=== PATIENT | female | born 2000 | race Caucasian/White ===

== ENCOUNTER → 2018-06-24 08:31 | Observation (INO) ==
[2018-06-24 07:42] LABS: Bilirubin,Urine Negative (Negative); Blood,Urine Negative (Negative); Color,Urine Yellow (Yellow); Glucose,Urine (UA) Normal (Normal); Ketones,Urine Negative (Negative); Leukocyte Esterase,Urine Moderate (Negative); Nitrite,Urine Negative (Negative); Protein,Urine Negative (Neg-Trace); Specific Gravity,Urine 1.008 (1.010-1.025); Urobilinogen,Urine Normal (Normal)
[2018-06-24 07:45] LABS: Bacteria,Urine Many per hpf (None-Few); Clarity,Urine Cloudy (Clear); Hyaline Casts,Urine Few per lpf (None-Few); RBC,Urine 0-3 per hpf (0-3); Squamous Epithelial Cell,Urine Many per lpf (None-Few); WBC,Urine TNTC per hpf (0-3)
--- NOTE | 2018-06-24 08:04 | OB/GYN Progress Note ---
Date of Encounter: 06/24/18 Time of Encounter: 08:00 - Assessment and Plan (1) First in adolescent 16 years of age or older in second trimester Current Visit: Yes Status: Acute (2) 27 weeks gestation of Current Visit: Yes Status: Acute (3) uterine contractions in second trimester, antepartum Current Visit: Yes Status: Acute (4) Bacterial vaginosis Current Visit: Yes Status: Acute We will get patient Flagyl 500 mg by mouth 1 now we will observe patient then will discharge home if stable with a prescription for Flagyl 500 mg twice a day for a week patient will follow-up in the office this week Subjective - Subjective Interval history: Patient is a 18-year-old 1 para 0 at 27-6/7 weeks who presents to labor and delivery complaining of intense lower abdominal pressure discharge and possible bleeding. Patient states she woke up at approximately 3 AM with abdominal discomfort she went to the bathroom when she wiped she stated she note d a darkish possible bloody discharge on the toilet paper. The patient states she went back to bed workup at approximately 6:00 with cramping and pressure she called her family members the advised to come to the hospital. Patient states she has had no blood that she can describe upon arrival and that discharge that she is describing is a darkish discoloration not bright red blood. She states she has been having a mucousy white discharge some time has not been addressed. Patient is not complaining of any dysuria urgency frequency no vaginal itching or burning. She states she is still feeling baby move well. Antepartum ROS: contractions Objective - Exam FHR: category 1 FHR comments: heart tones 140s reactive occasional contractions seen. Auscultation: bilateral: normal Abdomen: Present: normal appearance, soft, gravid Uterus: Present: firm Cervical dilation: 0 Cervix effacement: thick station: not engaged Comments: Sterile speculum exam performed on the patient's did reveal a copious white discharge with no blood inside the vaginal vault cervical os was closed with now performed on the patient did reveal clue cells suggestive of bacterial vaginosis. - Labs Labs: Abnormal lab results Urine Clarity Cloudy (Clear) A 06/24/18 07:30 Ur Specific [place] 1.008 (1.010-1.025) L 06/24/18 07:30 Ur Leukocyte Esterase Moderate (Negative) H 06/24/18 07:30 Urine Microscopic WBC TNTC per hpf (0-3) H 06/24/18 07:30 Ur Squamous Epith Cells Many per lpf (None-Few) H 06/24/18 07:30 Urine Bacteria Many per hpf (None-Few) H 06/24/18 07:30 Ur Culture Indicated? NO. (NO) A 06/24/18 07:30
[2018-06-24 08:05] LABS: Amphetamine Screen,Urine Negative ng/mL (Cutoff=1000); Barbiturate Screen,Urine Negative ng/mL (Cutoff=200); Benzodiazepines Screen,Urine Negative ng/mL (Cutoff=200); Cannabinoid Screen,Urine Positive ng/mL (Cutoff = 50); Cocaine Screen,Urine Negative ng/mL (Cutoff= 300); Opiate Screen,Urine Negative ng/mL (Cutoff=300); Phencyclidine Screen,Urine Negative ng/mL (Cutoff=25)
[~2018-06-24 08:31] MED LIST: metroNIDAZOLE 500 MG TABLET PO ONE
== END | disposition home or self-care (01) ==
LOC: 1NENULAB
PROVIDERS: ADMIT Registered Nurse; ATTEND Registered Nurse

== ENCOUNTER → 2018-09-09 12:26 | Observation (INO) ==
[2018-09-09 11:26] LABS: Amphetamine Screen,Urine Negative ng/mL (Cutoff=1000); Barbiturate Screen,Urine Negative ng/mL (Cutoff=200); Benzodiazepines Screen,Urine Negative ng/mL (Cutoff=200); Cannabinoid Screen,Urine Positive ng/mL (Cutoff = 50); Cocaine Screen,Urine Negative ng/mL (Cutoff= 300); Opiate Screen,Urine Negative ng/mL (Cutoff=300); Phencyclidine Screen,Urine Negative ng/mL (Cutoff=25)
[~2018-09-09 12:26] MED LIST changes: +Ondansetron 4 MG/2 ML VIAL IVP ONE; +Ringers Solution, Lactated 1,000 ML IVC SCH; -metroNIDAZOLE 500 MG TABLET PO ONE
--- NOTE | 2018-09-09 12:33 | OB/GYN Progress Note ---
Date of Encounter: 09/09/18 Time of Encounter: 12:30 - Assessment and Plan (1) 38 weeks gestation of Status: Acute (2) Nausea/vomiting in Status: Acute Given LR bolus and IV Zofran, patient states nausea improved and feels much better. No change on serial cervical exams consistent with last office exam. Patient desires to be discharged home. Discharged home with labor and when to return to triage precautions. Patient verbalizes understanding Subjective - Subjective Interval history: 38+6 weeks gestation presents to triage with complaints of nausea vomiting diarrhea and lower abdominal pelvic pain. Patient states she is been feeling uncomfortable and with nausea and emesis since last night. Reports good movement, denies vaginal bleeding or leaking of fluid. Antepartum ROS: movement normal, contractions, no loss of fluid, no vaginal bleeding Objective - Vital Signs Vital Signs: Intake and Output 09/08/18 09/09/18 09/09/18 23:59 07:59 15:59 Other: Weight 87.7 kg Patient Weight 09/09/18 23:59 Weight 87.7 kg - Exam FHR: auscultation normal FHR comments: Baseline 115 Abdomen: Present: soft, gravid Cervical dilation: 4/80/0 - Labs Labs: Abnormal lab results U Marijuana (THC) Screen Positive ng/mL (Cutoff = 50) H 09/09/18 10:32
== END | disposition home or self-care (01) ==
LOC: 1NENULAB
PROVIDERS: ADMIT Advanced Practice Midwife; ATTEND Advanced Practice Midwife

== ENCOUNTER 2018-09-11 04:23 | Inpatient (IN) ==
[2018-09-11 03:39] LABS: Basophils % 0.2 %; Eosinophils % 0.2 %; Hemoglobin 10.8 g/dL (11.5-15.4); Immature Granulocytes % 0.4 % (0-4); Lymphocytes # 4.3 K/mcL (0.6-4.6); Lymphocytes % 44.5 %; Mean Corpuscular HGB Conc 33.8 g/dL (31.6-35.5); Mean Corpuscular Hemoglobin 26.7 pg (28.0-33.3); Mean Corpuscular Volume 79.2 fL (83.0-100.0); Mean Platelet Volume 11.7 fL (9.4-12.4); Monocytes # 1.3 K/mcL (0.0-1.3); Neutrophils # 3.9 K/mcL (1.6-8.9); Platelet Count 166 K/mcL (140-400); Red Blood Count 4.04 M/mcL (3.82-4.97); Red Cell Distribution Width 15.9 % (11.5-14.5); Segmented Neutrophils % 40.7 %
[2018-09-11 04:10] LABS: Reactive Lymphocytes Present (Not Present)
[~2018-09-11 04:23] MED LIST changes: +*HR* FentaNYL (PF) 100 MCG/2 ML VIAL ONE; +*HR* Nalbuphine 10 MG/ML AMPUL IVP PRN; +*HR* Ropivacaine/PF 0.2% 20 ML VIAL ONE; +Epidural Premix (fent/bupiv) 110 ML EP ONE; +Famotidine 20 MG/2 ML VIAL IVP PRN; +Lidocaine -MPF 1% 5 ML AMPUL ONE; +Metoclopramide 10 MG/2 ML VIAL IVP PRN; +Naloxone 0.4 MG/ML INJ IVP PRN; -Ondansetron 4 MG/2 ML VIAL IVP ONE; +Ringers Solution, Lactated 1,000 ML ONE
--- NOTE | 2018-09-11 04:24 | Anesthesia Evaluation PreOp ---
Date of Encounter: 09/11/18 Time of Encounter: 03:45 - Past History Planned Operation: elda Cardiac History: Denies any Significant Hx Pulmonary History: Denies Any Significant HX P[employer]ER [employer]ODU[employer] History: Denies Any Significant HX Other Medical History: Denies Any Significant HX Anesthesia History: No Prior Anesthetic Complications, Past Anesthesia : Yes Alcohol Use: none Drug use: none Medications and Allergies Formula Tablet 1 tab PO DAILY 09/11/18 [History] Allergy/AdvReac Type Severity Reaction Status Date / Time No Known Allergies Allergy Verified 01/10/18 15:43 Anesthesia Results - Labs 09/11/18 03:21 Anesthesia Exam O2 Sat Height 1.68 m Weight 90.265 kg Vital Signs Resp BP 16 139/94 09/11/18 03:00 09/11/18 03:00 Height: 66 Weight: 90 - HEENT Pupil (Motor): Pupils equal Mallampati: II Teeth: Normal Oral Opening: Greater than 3 - 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
--- NOTE | 2018-09-11 04:27 | Anesthesia Procedures ---
Addendum entered and electronically signed by Cricket Franco CRNA 09/11/18 18:44: Infant A Delivery Date: 09/11/18 Infant Delivery Time: 10:21 Original Note: Date of Encounter: 09/11/18 Time of Encounter: 03:50 (procedure end time 0425) Procedures: Anesthesia - Epidural/Spinal Patient ID/Chart reviewed: Yes Patient examined: Yes OB Eval: Contractions: Non-stressed pattern Consent Obtained: Yes Supplemental Oxygen: None/Room Air Site Prep: Aseptic Technique Patient position: upright Local Anesthetic: Lidocaine 1% Amount of Local Anesthetic used: 3 Touhy Needle Gauge: 18 Touhy Needle Depth (cm): 5 Catheter Depth at Skin (cm): 12 Test Dose (1.5% Lido + Epi): Volume given (mls): 3 Test Dose Result: Negative Loading Dose: Fentanyl (mcg): 100 Loading Dose: Other: 6ml 0.2% ropivicaine Loading Dose Administered: Thru Touhy Needle Infusion Rate (mls/hr): [address]: Tegaderm Interspace Used: L3-L4 Loss of Resistance (MIRIAM): Yes Blood: No CSF: No Paresthesia: No
[2018-09-11] MEDS ORDERED: Epidural Premix (fent/bupiv) 110 ML EP SCH (04:30)
--- NOTE | 2018-09-11 05:49 | OB/GYN History & Physical ---
Date of Encounter: 09/11/18 Time of Encounter: 05:44 Assessment and Plan (1) 39 weeks gestation of Current visit: Yes Status: Acute Admit for labor GBS negative May have epidural upon request Consider AROM and/or pitocin for augmentation Anticipate vaginal delivery POC per consult with Dr Deng (2) Marijuana use Current visit: Yes Status: Acute History of Present Illness Chief complaint: Laboring HPI: Ms. Valle is a 18 year old at 39 weeks and 1 day that present to triage with c/o contractions that started overnight . She states positive movement. She denies headache, vision changes, epigastric pain, and vaginal bleeding. She is seen by the midwives for her . 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 Labs: GBS negative Blood type O+ Rubella immune Varicella immune RPR NR HIV NR Hep B NR Past Med Surg Social Fam HX - Past Medical History Medical history: no medical history Psychiatric history: no psych history - Past Surgical History Surgical History: no surgical history - Social History Smoking Status: Former smoker Smokeless Tobacco Status: No Alcohol use: none Drug use: none - Family History Mother Adopted: No Family Member Ethnicity: Non- Living Status: Still Living Hx Family Cardiac Disorders: No Hx Family Respiratory Disorders: No Hx Family Cancer: No Hx Family GI Disorders: No Hx Family Genitourinary Disorders: No Hx Family Endocrine Disorder: No Hx Family Musculoskeletal Disorders: No Hx Family Neuromuscular Disorders: No Hx Family Neurologic Disorders: No Hx Family HEENT Disorders: No Hx Family Autoimmune Disorders: No Hx Family Reproductive Disorders: No Hx Family Psychosocial Disorders: No Hx Family Medical Disorders: No Obstetrical History - Pregnancies : 1 Para: 0 Term: 0 : 0 Ab's: 0 Livin Medications and Allergies Formula Tablet 1 tab PO DAILY 09/11/18 [History] Allergy/AdvReac Type Severity Reaction Status Date / Time No Known Allergies Allergy Verified 01/10/18 15:43 Review of System OB All systems PM: reviewed and no additional remarkable complaints except as stated Exam - Vital Signs Vital signs: Initial Vital Signs Resp BP 16 139/94 09/11/18 03:00 09/11/18 03:00 - Constitutional Constitutional: well developed, well nourished, mild distress, obese - HEENT HEENT: Normocephaly, Mucus Membranes Moist - Neck Neck exam: full ROM - Lungs Respiratory exam: CTAB - Cardiovascular Cardiovascular exam: RRR, +S1, +S2 - Abdomen Abdomen: Present: bowel sounds normal, gravid, non tender - Extremities Extremities exam: normal capillary refill, normal inspection, radial pulses palpable and symmetrical Deep Tendon Reflex Grade: 2+ Normal - Vagina Vagina: Present: normal moisture - Cervix Dilation: 5 (5-6 ) Effacement: 100 Station: 0 - Anus/Rectum Anus/Rectum: Present: normal perianal skin Results Result Diagrams: 09/11/18 03:21 Abnormal lab results Hgb 10.8 g/dL (11.5-15.4) L 09/11/18 03:21 Hct 32.0 % (35.3-44.9) L 09/11/18 03:21 MCV 79.2 fL (83.0-100.0) L 09/11/18 03:21 MCH 26.7 pg (28.0-33.3) L 09/11/18 03:21 RDW 15.9 % (11.5-14.5) H 09/11/18 03:21 Reactive Lymphocytes Present (Not Present) A 09/11/18 03:21 All other labs normal. - VTE Reasons for not Prescribing Prophylaxis: Treatment not Indicated - Low risk for VTE
[2018-09-11] MEDS ORDERED: Ondansetron 4 MG/2 ML VIAL IVP PRN ×2 (06:13→16:09)
[2018-09-11 08:04] LABS: Amphetamine Screen,Urine Negative ng/mL (Cutoff=1000); Barbiturate Screen,Urine Negative ng/mL (Cutoff=200); Benzodiazepines Screen,Urine Negative ng/mL (Cutoff=200); Cannabinoid Screen,Urine Positive ng/mL (Cutoff = 50); Cocaine Screen,Urine Negative ng/mL (Cutoff= 300); Opiate Screen,Urine Negative ng/mL (Cutoff=300); Phencyclidine Screen,Urine Negative ng/mL (Cutoff=25)
[2018-09-11] MEDS ORDERED: Oxytocin 20 units/ LR 1000 mL 20 UNIT/1,000 ML BAG IVC ONE (08:44)
--- NOTE | 2018-09-11 11:04 | OB/GYN Procedure Note ---
Delivery - Delivery Date: 09/11/18 Provider: Erica Lozoya Intrapartum events: none Delivery induction: none Delivery augmentation: rupture of membranes Delivery monitor: external FHT, external uterine Anesthesia: epidural Quantitated Blood Loss: 350 - Infant (s) Infant A Infant Delivery Date: 09/11/18 Infant Delivery Time: 10:21 Presentation: vertex Position: OA Route of delivery: Gender: Female Viability: Viable Pounds: 8 Ounces: 8 Weight Gram: 3.845 kg at 1 minute: 8 at 5 mins: 9 Shoulder Dystocia: not encountered Specimens collected: cord blood Placenta: spontaneous Cord: nuchal cord, 3 umbilical vessels, nuchal reduced - Repair Episiotomy: none Laceration Description: Periurethral (bilateral hemostatic), Vaginal (left - repaired with 3-0 monocryl), Labial (left - extension from vaginal - repaired) - Complications Delivery complications: none Delivery comments: This is a 18 year old G 1 now P 1001 who was admitted for spontaneous labor. She progressed with AROM to the second stage of labor. She pushed for 41 minutes. She delivered a viable, female , OA, "Pearl Jason", over an intact perineum. A nuchal cord was identified and easily reduced. A shoulder dystocia was not encountered. The infant was placed on the maternal abdomen and allowed to transition spontaneously. The cord was double clamped by packer insulation after pulsations ceased and cut by FOB. scores were 8 at 1 minute and 9 at 5 minutes. The weighed 8 lbs. 8 oz. (3845 g). The placented delivered (Devine) spontaneously, intact with a 3-vessel cord. Inspection revealed a left vaginal laceration with an extension to the left labia and bilateral periurethral lacerations. The vaginal and labial lacerations were repaired with a 3-0 Monocryl in the usual fashion. The periurethral lacerations were left unrepaired as they were hemostatic. The uterus was firm with no active bleeding. EBL was 350 mL. Placenta and umbilical artery blood gases were not sent. There were no complications during the procedure. Mom and baby are skin to skin following delivery. - Disposition Mom disposition: stable in LDR disposition: stable in LDR
[2018-09-11] MEDS ORDERED: Oxytocin 20 units/ LR 1000 mL 20 UNIT/1,000 ML BAG IVC SCH (14:04)
[2018-09-11] MEDS ORDERED: Sennosides 8.6 MG TABLET PO PRN (14:04)
[2018-09-11] MEDS ORDERED: Acetaminophen 325 MG TABLET PO PRN (14:04)
[2018-09-11] MEDS ORDERED: *HR* Labetalol 20 MG/4 ML SYRINGE IVP ONE (15:12)
[2018-09-11] MEDS ORDERED: Magnesium Sulfate 6 GM in 0.9 % Sodium Chloride 100 ML IVPB ONE (15:16)
[2018-09-11 16:36] LABS: Hematocrit 27.4 % (35.3-44.9); Hemoglobin 9.2 g/dL (11.5-15.4); Immature Granulocytes % 0.4 % (0-4); Lymphocytes % 33.6 %; Mean Corpuscular HGB Conc 33.6 g/dL (31.6-35.5); Mean Corpuscular Volume 80.4 fL (83.0-100.0); Mean Platelet Volume 11.6 fL (9.4-12.4); Platelet Count 117 K/mcL (140-400); Red Blood Count 3.41 M/mcL (3.82-4.97); Segmented Neutrophils % 52.9 %
[2018-09-11 16:37] LABS: Basophils % 0.2 %; Eosinophils % 0.1 %; Lymphocytes # 3.4 K/mcL (0.6-4.6); Monocytes # 1.3 K/mcL (0.0-1.3); Monocytes % 12.8 %; Neutrophils # 5.3 K/mcL (1.6-8.9)
[2018-09-11 16:48] LABS: Alanine Aminotransferase 13 Units/L (7-52); Aspartate Amino Transferase 28 Units/L (13-39); BUN/Creatinine Ratio 14 (6-26); Blood Urea Nitrogen 10 mg/dL (6-20); Lactate Dehydrogenase 236 Units/L (140-271); Uric Acid 7.4 mg/dL (2.3-7.6); eGFR For Non-African Americans > 60 (> 60)
[2018-09-11] MEDS: Magnesium Sulfate 20 gm/500mL 20 GM/500 ML IV.SOLN IVC SCH (17:20)
[2018-09-11] MEDS ORDERED: Calcium Gluconate 1,000 MG/10 ML VIAL IVPB ONE (17:27)
[2018-09-11] MEDS: Ibuprofen 600 MG TABLET PO PRN (20:15)
[2018-09-12] MEDS: Magnesium Sulfate 20 gm/500mL 20 GM/500 ML IV.SOLN IVC SCH (03:30)
[2018-09-12] MEDS: Ibuprofen 600 MG TABLET PO PRN ×2 (08:07→20:25)
[2018-09-12] MEDS: Prenatal Vit/FA 1 EACH TABLET PO SCH (08:08)
--- NOTE | 2018-09-12 09:22 | OB/GYN Progress Note ---
Date of Encounter: 09/12/18 Time of Encounter: 09:13 - Assessment and Plan (1) Vaginal delivery Current Visit: Yes Status: Acute Patient meeting day one milestones. Pain well-controlled with prescribed medications. Shah catheter still in due to Mag Sulfate, draining without difficulty, tolerating regular diet, bleeding light. No bowel movement yet. Anticipate discharge possibly tomorrow (2) Laceration of periurethral tissue with delivery Current Visit: Yes Status: Acute Motrin, ice packs, dermoplast as needed for discomfort. (3) hypertension Current Visit: Yes Status: Acute Continue mag for 24 hours . Continue Labetalol 200 mg po bid. Consider making tid if pressures remain sherie vated. Mag level ordered this AM. Consider discharge tomorrow if BP stable. Subjective - Subjective Principal diagnosis: S/P vaginal delivery and HTN Interval history: After delivery, patient's blood pressures did spike so she was started on Magnesium Sulfate at approximately 1530 yesterday afternoon. Plan to turn off Pitocin today at 1530. Stat Mag level ordered due to decreased reflexes. Patient was also started on Labetalol 200 mg po bid. Pressures had been stable throughout the night but the last two this morning were 150's/100's. Delivery Date: 09/11/18 Provider: Erica Lozoya Intrapartum events: none Delivery induction: none Delivery augmentation: rupture of membranes Delivery monitor: external FHT, external uterine Anesthesia: epidural Quantitated Blood Loss: 350 - Infant (s) Infant A Delivery Date: 09/11/18 Infant Delivery Time: 10:21 Presentation: vertex Position: OA Route of delivery: Gender: Female Viability: Viable Pounds: 8 Ounces: 8 Weight Gram: 3.845 kg at 1 minute: 8 at 5 mins: 9 Shoulder Dystocia: not encountered Specimens collected: cord blood Placenta: spontaneous Cord: nuchal cord, 3 umbilical vessels, nuchal reduced - Repair Episiotomy: none Laceration Description: Periurethral (bilateral hemostatic), Vaginal (left - repaired with 3-0 monocryl), Labial (left - extension from vaginal - repaired) - Complications Delivery complications: none Delivery comments: This is a 18 year old G 1 now P 1001 who was admitted for spontaneous labor. She progressed with AROM to the second stage of labor. She pushed for 41 minutes. She delivered a viable, female infant, OA, "Pearl Jason", over an intact perineum. A nuchal cord was identified and easily reduced. A shoulder dystocia was not encountered. The was placed on the maternal abdomen and allowed to transition spontaneously. The cord was double clamped by ball shagger after pulsations ceased and cut by FOB. scores were 8 at 1 minute and 9 at 5 minutes. The infant weighed 8 lbs. 8 oz. (3845 g). The placented delivered (Nilson) spontaneously, intact with a 3-vessel cord. Inspection revealed a left vaginal laceration with an extension to the left labia and bilateral periurethral lacerations. The vaginal and labial lacerations were repaired with a 3-0 Monocryl in the usual fashion. The periurethral lacerations were left unrepaired as they were hemostatic. The uterus was firm with no active bleeding. EBL was 350 mL. Placenta and umbilical artery blood gases were not sent. There were no complications during the procedure. Mom and baby are skin to skin following delivery. - Disposition Mom disposition: stable in LDR disposition: stable in LDR Patient reports: appetite normal, voiding normally (Shah catheter remains in place.), pain well controlled, ambulating normally Mcdonald: doing well, bottle feeding Objective - Latest Vital Signs Latest vital signs: Vital Signs Temp Pulse Resp BP Pulse Ox 09/12/18 07:00 67 14 142/89 09/12/18 06:00 67 14 125/77 09/12/18 05:00 59 14 143/92 09/12/18 04:00 97.7 F 59 14 121/79 97 09/12/18 03:00 75 14 122/80 09/12/18 02:00 83 14 111/69 09/12/18 01:00 79 14 127/79 09/12/18 00:00 70 14 137/87 09/11/18 23:00 76 14 144/87 09/11/18 22:00 76 14 142/93 09/11/18 21:00 70 14 128/80 09/11/18 20:00 97.6 F 71 14 137/84 99 09/11/18 18:17 70 18 158/96 09/11/18 17:25 69 16 144/88 09/11/18 16:30 66 18 162/103 09/11/18 15:30 98.1 F 63 18 163/110 99 09/11/18 14:30 98.0 F 76 20 150/101 98 09/11/18 13:30 98.4 F 57 14 157/90 Intake and Output 09/11/18 09/12/18 09/12/18 23:59 07:59 15:59 Intake Total 112 / 112 500 / 500 Output Total 2550 / 2550 1870 / 1870 Balance -2438 / -2438 -1370 / -1370 Intake: IV Fluids 112 / 112 500 / 500 Magnesium Sulfate Premix 20 gm/ 500 / 500 500mL 20 gm In 500 ml @ 2 GM/HR 50 mls/hr IVC .Q10H NANCY Rx#: [id number] Magnesium Sulfate 6 GM In 0.9 % 112 / 112 Sodium Chloride 100 ML @ 100 mls/hr IVPB ONCE ONE Rx#: [id number] Output: Urine 2550 / 2550 1870 / 1870 - Exam Lungs: bilateral: normal Chest: Normal S1, Normal S2 Extremities: Present: normal Abdomen: Present: normal appearance, soft Uterus: Present: normal, firm Uterus Position: At Umbilicus Comments: Patient is complaining of a headache. - Labs Labs: Laboratory Results - last 24 hr 09/11/18 09/11/18 09/11/18 16:18 16:18 20:35 WBC 10.1 RBC 3.41 L Hgb 9.2 L D Hct 27.4 L MCV 80.4 L MCH 27.0 L MCHC 33.6 RDW 16.0 H Plt Count 117 L MPV 11.6 Immature Gran % 0.4 Seg Neutrophils % 52.9 Lymphocytes % 33.6 Monocytes % 12.8 Eosinophils % 0.1 Basophils % 0.2 Neutrophils # 5.3 Lymphocytes # 3.4 Monocytes # 1.3 Eosinophils # 0.0 Basophils # 0.0 Immature Plt Fraction 9.0 H BUN 10 Creatinine 0.70 Est GFR ( Amer) > 60 Est GFR (Non-Af Amer) > 60 BUN/Creatinine Ratio 14 Uric Acid 7.4 AST 28 ALT 13 Lactate Dehydrogenase 236 Urine Creatinine 15 Protein/Creatinin Ratio 1.00 H Urine Total Protein 15 H
[2018-09-12 12:01] LABS: Hematocrit 27.8 % (35.3-44.9); Mean Corpuscular HGB Conc 33.1 g/dL (31.6-35.5); Mean Corpuscular Hemoglobin 26.4 pg (28.0-33.3); Mean Corpuscular Volume 79.7 fL (83.0-100.0); Mean Platelet Volume 11.7 fL (9.4-12.4); Platelet Count 150 K/mcL (140-400); Red Blood Count 3.49 M/mcL (3.82-4.97); Red Cell Distribution Width 16.3 % (11.5-14.5)
[2018-09-12 12:06] LABS: Hemoglobin 9.2 g/dL (11.5-15.4)
[2018-09-12 12:59] LABS: Lymphocytes # 2.3 K/mcL (0.6-4.6); Monocytes # 0.6 K/mcL (0.0-1.3); Neutrophils # 7.4 K/mcL (1.6-8.9)
[2018-09-12 13:00] LABS: Platelet Estimate Normal (Normal); Polychromasia 1+ (Not Present)
[2018-09-13 08:55] VITALS: BP 154/91
[2018-09-13] MEDS: Ibuprofen 600 MG TABLET PO PRN (09:26)
[2018-09-13] MEDS: Prenatal Vit/FA 1 EACH TABLET PO SCH (09:26)
[2018-09-13] MEDS ORDERED: Etonogestrel 68 MG IMPLANT IL ONE (09:54)
[2018-09-13] MEDS ORDERED: Lidocaine -MPF 1% 5 ML AMPUL ID ONE (09:54)
--- NOTE | 2018-09-13 09:58 | Discharge Summary ---
Date of Encounter: 09/13/18 Time of Encounter: 10:06 - Discharge Diagnosis (1) Peripheral vision loss Priority: Secondary Status: Acute Comments: MRI revealed Mild prominence of the retrocerebellar CSF space, which may be due to an arachnoid cyst versus a aren cisterna magna, which is considered a normal variant. Pt seen by neurology and no cause for her sx identified. No acute complaints today. Qualifiers: Laterality: unspecified laterality Qualified Code(s): H53.459 - Other localized visual field defect, unspecified eye (2) Vaginal delivery Priority: Primary Status: Acute Comments: Pt meeting all milestones. (3) Marijuana use Priority: Secondary Status: Acute Comments: SW consult. (4) hypertension Priority: Secondary Status: Acute Comments: Pt denies any s/sx preeclampsia. She received 24 hours of magnesium sulfate. Her blood pressures are stable 140's/80's on Labetalol 200mg BID. Pt will need BP check in 1 week. - Discharge Medications Prescriptions: New Ferrous Sulfate 325 mg PO DAILY #30 tablet Labetalol [Trandate] 200 mg PO BID #120 tablet Ibuprofen [Motrin] 600 mg PO Q6HR PRN #30 tablet PRN Reason: Cramping Docusate [Colace] 100 mg PO BID #60 capsule Continue Formula Tablet 1 tab PO DAILY Home Medications: Formula Tablet 1 tab PO DAILY 09/11/18 [History] Docusate [Colace] 100 mg PO BID #60 capsule 09/13/18 [Rx] Ferrous Sulfate 325 mg PO DAILY #30 tablet 09/13/18 [Rx] Ibuprofen [Motrin] 600 mg PO Q6HR PRN #30 tablet 09/13/18 [Rx] Labetalol [Trandate] 200 mg PO BID #120 tablet 09/13/18 [Rx] Allergies/Adverse Reactions: Allergy/AdvReac Type Severity Reaction Status Date / Time No Known Allergies Allergy Verified 01/10/18 15:43 Data Procedures and tests throughout hospitalization: Laboratory Tests 09/11/18 09/11/18 09/11/18 03:21 07:20 16:18 WBC 9.6 10.1 RBC 4.04 3.41 L Hgb 10.8 L 9.2 L D Hct 32.0 L 27.4 L MCV 79.2 L 80.4 L MCH 26.7 L 27.0 L MCHC 33.8 33.6 RDW 15.9 H 16.0 H Plt Count 166 117 L MPV 11.7 11.6 Immature Gran % 0.4 0.4 Seg Neutrophils % 40.7 52.9 Band Neutrophils % Lymphocytes % 44.5 33.6 Monocytes % 14.0 12.8 Eosinophils % 0.2 0.1 Basophils % 0.2 0.2 Neutrophils # 3.9 5.3 Lymphocytes # 4.3 3.4 Monocytes # 1.3 1.3 Eosinophils # 0.0 0.0 Basophils # 0.0 0.0 Reactive Lymphocytes Present A Platelet Estimate Immature Plt Fraction 9.0 H Polychromasia BUN Creatinine Est GFR ( Amer) Est GFR (Non-Af Amer) BUN/Creatinine Ratio Uric Acid Magnesium AST ALT Lactate Dehydrogenase Urine Creatinine Protein/Creatinin Ratio Urine Total Protein Urine Opiates Screen Negative Ur Barbiturates Screen Negative Ur Phencyclidine Scrn Negative Ur Amphetamines Screen Negative U Benzodiazepines Scrn Negative Urine Cocaine Screen Negative U Marijuana (THC) Screen Positive H Ur Drug Screen Interp See Below 09/11/18 09/11/18 09/12/18 16:18 20:35 11:34 WBC 10.3 RBC 3.49 L Hgb 9.2 L Hct 27.8 L MCV 79.7 L MCH 26.4 L MCHC 33.1 RDW 16.3 H Plt Count 150 MPV 11.7 Immature Gran % Seg Neutrophils % 70.0 Band Neutrophils % 2.0 Lymphocytes % 22.0 Monocytes % 6.0 Eosinophils % Basophils % Neutrophils # 7.4 Lymphocytes # 2.3 Monocytes # 0.6 Eosinophils # Basophils # Reactive Lymphocytes Platelet Estimate Normal Immature Plt Fraction Polychromasia 1+ A BUN 10 Creatinine 0.70 Est GFR ( Amer) > 60 Est GFR (Non-Af Amer) > 60 BUN/Creatinine Ratio 14 Uric Acid 7.4 Magnesium AST 28 ALT 13 Lactate Dehydrogenase 236 Urine Creatinine 15 Protein/Creatinin Ratio 1.00 H Urine Total Protein 15 H Urine Opiates Screen Ur Barbiturates Screen Ur Phencyclidine Scrn Ur Amphetamines Screen U Benzodiazepines Scrn Urine Cocaine Screen U Marijuana (THC) Screen Ur Drug Screen Interp 09/12/18 11:34 WBC RBC Hgb Hct MCV MCH MCHC RDW Plt Count MPV Immature Gran % Seg Neutrophils % Band Neutrophils % Lymphocytes % Monocytes % Eosinophils % Basophils % Neutrophils # Lymphocytes # Monocytes # Eosinophils # Basophils # Reactive Lymphocytes Platelet Estimate Immature Plt Fraction Polychromasia BUN Creatinine Est GFR ( Amer) Est GFR (Non-Af Amer) BUN/Creatinine Ratio Uric Acid Magnesium 5.5 H AST ALT Lactate Dehydrogenase Urine Creatinine Protein/Creatinin Ratio Urine Total Protein Urine Opiates Screen Ur Barbiturates Screen Ur Phencyclidine Scrn Ur Amphetamines Screen U Benzodiazepines Scrn Urine Cocaine Screen U Marijuana (THC) Screen Ur Drug Screen Interp Labs on day of discharge: Labs from last 24 hours 09/12/18 09/12/18 11:34 11:34 WBC 10.3 RBC 3.49 L Hgb 9.2 L Hct 27.8 L MCV 79.7 L MCH 26.4 L MCHC 33.1 RDW 16.3 H Plt Count 150 MPV 11.7 Seg Neutrophils % 70.0 Band Neutrophils % 2.0 Lymphocytes % 22.0 Monocytes % 6.0 Neutrophils # 7.4 Lymphocytes # 2.3 Monocytes # 0.6 Platelet Estimate Normal Polychromasia 1+ A Magnesium 5.5 H Date of admission: 09/11/18 04:23 Primary care physician: PCP NONE Consults: 09/11/18 14:04 Consult to Clinical Social Work Therapist [CONS] Routine Comment: Vaginal delivery, consult needed Discharging clinician: Diane Sánchez Anticipated date of discharge: 09/13/18 - Patient Status Disposition: Home, Self-Care Condition: Good Functional capacity at discharge: independent ambulation Overall status at discharge: patient is progressing back to baseline - Discharge Instructions Follow Up With: NONE,PCP [Primary Care Provider] - Erica Lozoya [Advanced Practice Nurse] - - Diet and Activity Activity: increase activity as tolerated Diet: regular diet Hospital Course Reason for admission: active labor Delivery: Episiotomy: none Laceration: vaginal side wall, other (labial and periurethral) Other procedures: none complications: none Discharge diagnosis: IUP at term delivered [place] baby: female Hospital course: Delivery Date: 09/11/18 Provider: Erica Lozoya Intrapartum events: none Delivery induction: none Delivery augmentation: rupture of membranes Delivery monitor: external FHT, external uterine Anesthesia: epidural Quantitated Blood Loss: 350 - Infant (s) A Delivery Date: 09/11/18 Delivery Time: 10:21 Presentation: vertex Position: OA Route of delivery: Gender: Female Viability: Viable Pounds: 8 Ounces: 8 Weight Gram: 3.845 kg at 1 minute: 8 at 5 mins: 9 Shoulder Dystocia: not encountered Specimens collected: cord blood Placenta: spontaneous Cord: nuchal cord, 3 umbilical vessels, nuchal reduced - Repair Episiotomy: none Laceration Description: Periurethral (bilateral hemostatic), Vaginal (left - repaired with 3-0 monocryl), Labial (left - extension from vaginal - repaired) - Complications Delivery complications: none - Disposition Mom disposition: home PPD2 [place] disposition: home with mother, bottle feeding Time Attestation: Total time spent providing and/or coordinating discharge services: Time Spent: Less than 30 minutes Exam - Constitutional Vitals: Temp Pulse Resp BP Pulse Ox 98.1 F 74 14 154/91 96 09/13/18 07:30 09/13/18 07:30 09/13/18 08:19 09/13/18 07:30 09/13/18 01:00 General appearance IM: A&O X 3 - Respiratory Respiratory exam: Present: CTAB - Cardiovascular Cardiovascular exam IM: Present: RRR, +S1, +S2 - GI/Abdominal GI/Abdominal exam IM: soft, no peritoneal signs - Rectal Rectal exam: deferred - External exam: normal external exam Uterine Tone: Firm Uterus Position: 1 Finger Below Umbilicus - Extremities Exam Extremities exam IM: Present: pedal edema (mild bilaterally) - Neurological Exam Neurological exam: normal gait, oriented X3 - Psychiatric Additional comments: reports good mood, desires Nexplanon for contraception
--- NOTE | 2018-09-13 11:46 | OB/GYN Procedure Note ---
OB-[employer]PER: Procedure - Diagnosis Date of procedure: 09/13/18 Pre-op diagnosis: Desires Contraception Post-op diagnosis: same - Procedure Procedure: Nexplanon Insertion Surgeon: Diane Sánchez Was there an assistant paralegal present: No Anesthesia Type: Local Estimated blood loss (cc): 0 Procedure Complications: None Specimens collected: n/a Disposition: no change Narrative: Discussed control options with patient. Patient desires Nexplanon. Patient educated on risks/benefits of Nexplanon. Informed consent obtained and time out performed. Patient placed supine with left arm flexed. Inner aspect of her left upper arm was cleansed with betadine. 5mls of 1% Lidocaine was instilled along the insertion track. Nexplanon was placed without difficulty. Patient and provider able to palpate Nexplanon under the skin. Sterile gauze placed over insertion site and secured with Coban. Patient instructed to keep dressing on for 24 hours.
== END 2018-09-13 11:55 | disposition home or self-care (01) | DRG 560 ==
LOC: 1NENULAB → 1NENUOBS 13:29
PROVIDERS: ADMIT Advanced Practice Midwife; ATTEND Advanced Practice Midwife